=== PATIENT | female | born 1985 | race Caucasian/White ===

== ENCOUNTER 2018-01-22 17:22 | Emergency (ER) | payer BC, MEDICAID, OTHER ==
[~2018-01-22] VITALS: Ht 152.4 cm; Wt 96.6 kg
[~2018-01-22 17:22] MED LIST: BIRTH CONTROL
[2018-01-22] MEDS ORDERED: ibuprofen tablet 400 MG TABLET PO ONE (17:40)
[2018-01-22] MEDS ORDERED: HYDROmorphone 2mg/ml vial IV PRN (18:25)
[2018-01-22] MEDS ORDERED: ondansetron/PF 4mg/2ml inj IM ONE (18:25)
[2018-01-22] MEDS ORDERED: HYDROmorphone 1 mg/ml syringe IV PRN (18:35)
[2018-01-22] MEDS ORDERED: HYDR-565 PO (19:11)
[2018-01-22 21:40] VITALS: BP 114/77
== END 2018-01-22 21:42 | disposition home or self-care (01) ==
LOC: ER 17:22
DX: S52.572A Other intraarticular fracture of lower end of left radius, initial encounter for closed fracture (principal); V89.2XXA Person injured in unspecified motor-vehicle accident, traffic, initial encounter; Y93.89 Activity, other specified; Y92.410 Unspecified street and highway as the place of occurrence of the external cause; Y99.8 Other external cause status
CPT/HCPCS: 29125; 73110; 96374; 96375; 99284; A4565; A6449; J1170; J2405

== ENCOUNTER 2021-12-25 13:26 | Emergency (ER) | payer BC, MEDICAID, OTHER ==
[~2021-12-25] VITALS: Ht 165.1 cm; Wt 100.0 kg
[2021-12-25 13:32] VITALS: BP 137/93
== END 2021-12-25 16:13 | disposition home or self-care (01) ==
LOC: ER 13:27
DX: S13.4XXA Sprain of ligaments of cervical spine, initial encounter (principal); M25.532 Pain in left wrist; M25.512 Pain in left shoulder; Z87.891 Personal history of nicotine dependence; V89.2XXA Person injured in unspecified motor-vehicle accident, traffic, initial encounter; Y93.89 Activity, other specified; Y92.89 Other specified places as the place of occurrence of the external cause; Y99.8 Other external cause status
CPT/HCPCS: 73110; 99283